=== PATIENT | female | born 2000 | race Caucasian/White ===

== ENCOUNTER 2020-01-16 14:48 | Inpatient (IN) ==
[2020-01-16 15:13] LABS: Bilirubin,Urine Negative (Negative); Blood,Urine Negative (Negative); Clarity,Urine Clear (Clear); Color,Urine Yellow (Yellow); Glucose,Urine (UA) Normal (Normal); Ketones,Urine Negative (Negative); Leukocyte Esterase,Urine Negative (Negative); Nitrite,Urine Negative (Negative); PH,Urine 5.5 pH Units (5.0-8.0); Protein,Urine Negative (Neg-Trace); Specific Gravity,Urine >= 1.030 (1.010-1.025); Urobilinogen,Urine Normal (Normal)
[2020-01-16 15:14] LABS: Bacteria,Urine Few per hpf (None-Few); Mucus,Urine Few per lpf (None-Few); RBC,Urine 0-3 per hpf (0-3); Squamous Epithelial Cell,Urine Few per hpf (None-Few); WBC,Urine 0-3 per hpf (0-3)
[2020-01-16 15:20] LABS: Basophils % 0.2 %; Eosinophils # 0.1 K/mcL (0.0-0.6); Eosinophils % 0.9 %; Hematocrit 47.8 % (35.3-44.9); Hemoglobin 15.8 g/dL (11.5-15.4); Immature Granulocytes % 0.2 % (0-4); Lymphocytes % 28.4 %; Mean Corpuscular HGB Conc 33.1 g/dL (31.6-35.5); Mean Corpuscular Hemoglobin 30.7 pg (28.0-33.3); Mean Corpuscular Volume 92.8 fL (83.0-100.0); Mean Platelet Volume 9.2 fL (9.4-12.4); Monocytes # 0.9 K/mcL (0.0-1.3); Monocytes % 8.3 %; Neutrophils # 6.6 K/mcL (1.6-8.9); Platelet Count 291 K/mcL (140-400); Red Blood Count 5.15 M/mcL (3.82-4.97); White Blood Count 10.6 K/mcL (4.3-11.1)
[2020-01-16 15:24] LABS: Amphetamine Screen,Urine Negative ng/mL (Cutoff=1000); Barbiturate Screen,Urine Negative ng/mL (Cutoff=200); Benzodiazepines Screen,Urine Negative ng/mL (Cutoff=200); Cannabinoid Screen,Urine Positive ng/mL (Cutoff = 50); Cocaine Screen,Urine Negative ng/mL (Cutoff= 300); Opiate Screen,Urine Negative ng/mL (Cutoff=300); Phencyclidine Screen,Urine Negative ng/mL (Cutoff=25)
[2020-01-16 15:26] LABS: Estimated Average Glucose 105 mg/dl
[2020-01-16 15:37] LABS: Acetaminophen < 10 mcg/mL (10-20); BUN/Creatinine Ratio 15 (6-26); Blood Urea Nitrogen 12 mg/dL (6-20); Calcium 9.9 mg/dL (8.6-10.3); Carbon Dioxide 26 mEq/L (23-29); Chloride 106 mEq/L (98-107); Chol/HDL Ratio 4.4 (0-4.9); Cholesterol 218 mg/dL (< 200); Ethanol < 10 mg/dL (Less than 10); Glucose 105 mg/dL (70-105); HDL Cholesterol 50 mg/dL (40-59); LDL Cholesterol,Calculated 146 mg/dL (< 100); Osmolality,Calculated 288 (280-300); Potassium 3.8 mEq/L (3.5-5.1); Salicylate < 2.5 mg/dL (15.0-30.0); Sodium 139 mEq/L (136-145); Triglycerides 112 mg/dL (< 150); eGFR For African Americans > 60 (> 60); eGFR For Non-African Americans > 60 (> 60)
[2020-01-16] MEDS ORDERED: *HR* LORazepam 2 MG/ML VIAL IM PRN (18:23)
[2020-01-16] MEDS ORDERED: Mag Hydrox/Al Hydrox/Simeth 30 ML UDC PO PRN (18:23)
[2020-01-16] MEDS ORDERED: Haloperidol Lactate 5 MG/ML VIAL IM PRN (18:23)
[2020-01-16] MEDS ORDERED: Acetaminophen 325 MG TABLET PO PRN (18:23)
[2020-01-16] MEDS ORDERED: MOM Conc 10 ML UD.LIQ PO PRN (18:23)
[2020-01-16] MEDS ORDERED: haloperidoL 5 MG TABLET PO PRN (18:23)
[2020-01-16] MEDS ORDERED: *HR* LORazepam 1 MG TABLET PO PRN (18:23)
[2020-01-16] MEDS: traZODone 50 MG TABLET PO PRN (22:57)
[2020-01-16] MEDS: hydrOXYzine pamoate 25 MG CAPSULE PO PRN (22:57)
[2020-01-17] MEDS: hydrOXYzine pamoate 25 MG CAPSULE PO PRN ×2 (10:37→20:33)
[2020-01-17] MEDS: lamoTRIgine 25 MG TABLET PO SCH (20:32)
[2020-01-17] MEDS: traZODone 50 MG TABLET PO PRN (20:33)
[2020-01-17] MEDS ORDERED: ARIPiprazole 5 MG TABLET PO SCH (21:00)
[2020-01-18] MEDS: lamoTRIgine 25 MG TABLET PO SCH (08:40)
[2020-01-18 09:56] VITALS: BP 133/76
== END 2020-01-18 15:35 | disposition home or self-care (01) | DRG 885 ==
LOC: EMEROOARM 14:48 → 1ANU 18:16
PROVIDERS: ADMIT Psychiatry & Neurology Psychiatry; ATTEND Psychiatry & Neurology Psychiatry